=== PATIENT | female | born 1990 ===

== ENCOUNTER → 2022-08-07 | Outpatient (CLI) | payer BC | LOC: LAB 12:00 → LAB SHORT 12:00 | DX: K13.79 Other lesions of oral mucosa (principal) | CPT/HCPCS: 87102 ==

== ENCOUNTER → 2023-07-14 | Outpatient (CLI) | payer OTHER ==
[2023-07-15 16:12] LABS: HPV 16 Negative (Negative); HPV 18 Negative (Negative); HPV OTHER HR TYPES Negative (Negative)
== END ==
LOC: LAB 10:29 → LAB SHORT 10:29
PROVIDERS: Family Medicine
DX: Z01.419 Encounter for gynecological examination (general) (routine) without abnormal findings (principal)
CPT/HCPCS: 87624; G0145

== ENCOUNTER 2023-11-27 09:54 | Day surgery (SDC) | payer OTHER ==
[~2023-11-27] VITALS: Ht 162.6 cm; Wt 136.1 kg
[2023-11-27] VITALS (10 sets, daily range): BP systolic 108–133; BP diastolic 61–95
[~2023-11-27 09:54] MED LIST: LEVSOD75 PO; METF500 PO; PROP80ER; SERT50
--- NOTE | 2023-11-27 10:40 | NUR ---
History, Chart, Medications and Allergies reviewed before start of procedure. Lungs clear T/O to Auscultation. Patient confirms NPO status and agrees with scheduled surgery. Pre-Op teaching done. Pt verbalizes understanding. Patient States Post-Procedure ride home has been arranged.
--- NOTE | 2023-11-27 14:24 | NUR ---
[facility] DISCHARGE NOTE PT A&OX4, BREATHING RA, PAIN CONTROLLED, NO ACUTE CONCERNS. Patient up to Ambulate independently. Gait steady. Discharge instructions reviewed with patient. Patient verbalizes understanding. Copy given to patient to take home. Dressing to procedure site clean, dry, intact with no visible drainage, swelling, erythema or bruising noted.PT TOLERATING PO FLUIDS. Discharged via wheelchair to private car for ride home.
== END 2023-11-27 14:15 | disposition home or self-care (01) ==
LOC: ORSCMMR 09:54 → ORD 11:15 → ORSCMMR 14:15
PROVIDERS: Orthopaedic Surgery
PROC: 0JPV0HZ Removal of Contraceptive Device from Upper Extremity Subcutaneous Tissue and Fascia, Open Approach (ICD-10-PCS; principal; 2023-11-27 11:15)
DX: Z30.46 Encounter for surveillance of implantable subdermal contraceptive (principal); G47.33 Obstructive sleep apnea (adult) (pediatric); E03.9 Hypothyroidism, unspecified; E28.2 Polycystic ovarian syndrome; Z79.899 Other long term (current) drug therapy; Z79.84 Long term (current) use of oral hypoglycemic drugs; Z68.43 Body mass index [BMI] 50.0-59.9, adult
CPT/HCPCS: 84703; J0690; J1100; J1885; J2405; J2704; J3010; J7120